=== PATIENT | female | born 1960 ===

== ENCOUNTER 2017-11-26 14:26 | Inpatient (IN) | payer MEDICARE, MEDICAID ==
[~2017-11-26] VITALS: Ht 165.1 cm; Wt 91.6 kg
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
--- NOTE | ~2017-11-26 | PR ---
[place], [place] PROGRESS NOTE [id number] UN[facility] #: [id number] ROOM: 310 DOCTOR: ALEX HYLTON MD BIRTHDATE: [birth year] DOS: 11/28/2017 CHIEF COMPLAINT: "I can't breathe too well." SUMMARY OF THE VISIT: The patient was interviewed as she sat in a Karina chair eating breakfast. She did have O2 on through nasal cannula. She was fixated on not being able to breathe, but seemed to be not in any distress whatsoever. Nurses report that she continues to be very problematic and that she is very delusional and will yell out, disrupting the entire watkins milieu. Her current medication regimen seems ineffective to date. MENTAL STATUS: She is alert and oriented to self, place, but not necessarily time. Mood does seem to be labile. Affect is inappropriate. She is in a mixed state of jolene and there is a gross delusional system present. Short term memory has gaps. PLAN: I will simplify her current regimen. She is on Haldol, Seroquel and Abilify. I will discontinue all three as well as the Benadryl. I will utilize Invega 6 mg in the morning to break the psychosis and increase her Depakote sprinkles to 500 mg twice daily and 1000 mg at bedtime, loading it at bedtime to aid sleep. Her valproic acid level was 28.3, so it is subtherapeutic. For PRNs, instead of the Haldol and Benadryl I will use Geodon 20 mg IM every 4 hours as needed and Ativan 1 mg p.o. every 4 hours as needed. We will engage in individual and watkins milieu activity, returning to the least restrictive environment when psychiatrically stable. ALEX HYLTON MD CM:PNTRANS 6 ALEX HYLTON MD 11/28/1715 interface
--- NOTE | ~2017-11-26 | PR ---
[place], [place] PROGRESS NOTE NAME: [facility]OTELLO [id number] UN[facility] #: [id number] ROOM: 309 DOCTOR: LALI BARCENAS DO BIRTHDATE: [birth year] DOS: 12/06/2017 CHIEF COMPLAINT: "I am feeling down. I want my family." SUMMARY OF VISIT: The patient is a 57-year-old female who [facility], currently on hospital day #10 with improved mood and significantly decreased disruptive behavior and yelling. She was admitted to the [facility] and initially was noted to have constant episodes of yelling and screaming. Per nursing staff, this has significantly reduced today. No notable yelling or disruptive behavior has been noted. She did appear to be somewhat sad this morning. She was interviewed in her room as the patient is currently in contact isolation. When asked if she was okay, she stated that she was sad that she missed her family. We reassured her that we would be discharging her to return to [facility] [place]. She stated she did not want to go there. However, we reassured her that they have been contacted and appeared to enjoy having her there. She did not elaborate as to why she did not want to go there. The patient was not yelling, did not show any signs of combativeness, she was sitting upright in bed. She states she was able to eat. Yesterday due to the patient being in contact isolation, she did participate in an activity that included coloring. She did appear to like that. When asked if she wanted to engage in this activity again, she stated that she would like that very much. The patient did not voice any other concerns at this time. MENTAL STATUS EXAMINATION: The patient is alert and oriented to self. Her affect is slightly depressed, but more appropriate. Her mood is trending towards euthymic. There are no signs of jolene or hypomania. She appears to be less psychotic and more readily engaging in conversation. She is now able to appropriately answer questions during our encounter. No bouts of yelling have been noted from the nursing staff or from the day or operations supervisor 2nd shift nurses today. She is pleasant and cooperative with exam this morning. Short-term memory continues to have gaps. She is less irritable and volatile. PLAN: 1. No changes to be made to her psychotropic regimen as she appears to have significantly improved on current psychotropic regimen. She does not appear to be having any side effects. Sleep and appetite have continued to normalize. 2. The patient likely to return to [facility] either Tuesday12/07/2017 or 12/08/2017. This is the place where the patient was living prior to arriving to the [facility]. 3. The patient is currently in contact isolation; however, she continues to have urinary incontinence. Therefore, she must remain in contact isolation. She is unable to keep her diapers on and we will continue isolation precautions. 4. We will continue to engage the patient in individual and work milieu activity, returning to the least restrictive environment when psychiatrically stable. ADDENDUM BY DR. HYLTON 12/15/17 11:15 AM: Above note reviewed. Agree with observations, recommendations, and overall treatment [place], [place] PROGRESS NOTE NAME: TANNER BOTELLO UNIT #: [id number] ROOM: 309 DOCTOR: LALI BARCENAS DO BIRTHDATE: [birth year] plan. Lali Barcenas DO ALEX HYLTON MD CM:PNTRANS [id number] T: LALI BARCENAS DO 12/15/17 1404 TOM [place].PRINCESS
--- NOTE | ~2017-11-26 | PR ---
[place], [place] PROGRESS NOTE [id number] UNIT #: [id number] ROOM: 309 DOCTOR: LALI BARCENAS DO BIRTHDATE: [birth year] DOS: 12/05/2017 CHIEF COMPLAINT: "I want to go home." SUMMARY OF VISIT: The patient is a 57-year-old female who was admitted to the [facility], currently on hospital day #9 with improved mood and decreased disruptive behavior. [facility] due to persistent flight of ideas and erratic behavior while being a resident at home. Since then, the patient has had decrease in yelling out as intensely. She is more cooperative towards nursing staff. She does continue to have episodes of yelling; however, she is able to engage in conversation more readily. This morning, she was interviewed in her room. She reported better sleep. There were no signs of agitation or aggression during my interview. The patient appeared more well rested, patient appears to be improving overall in terms of somnolence. No side effects from medication were noted. MENTAL STATUS EXAMINATION: The patient is alert and oriented to self. There continued to be episodes of yelling; however, her mood is trending towards more euthymic. Her affect is more appropriate. There are no signs of jolene or hypomania. She is still grossly psychotic; however, it may be possible that the patient is yelling as she is currently in contact isolation and trying to obtain attention from people passing by her room; however, when someone enters the room, she readily engages in conversation and is pleasant. PLAN: 1. No changes to psychotropic regimen as the patient appears to be tolerating this regimen well. No side effects have been noted. Sleep and appetite have continued to normalize. 2. We will continue to engage in individual and watkins milieu activity, returning to the least restrictive environment when psychiatrically stable. 3. The patient likely to be discharged sometime later this week back to [facility] and at [place] which is where the patient was living prior to [facility]. ADDENDUM BY DR. HYLTON 12/15/17 11:15 AM: Above note reviewed. Agree with observations, recommendations, and overall treatment plan. Lali Barcenas DO [place], [place] PROGRESS NOTE NAME: ROSMERYTANNER M UNIT #: [id number] ROOM: 309 DOCTOR: LALI BARCENAS DO BIRTHDATE: [birth year] ALEX HYLTON MD CM:NISHI 1002 T: LALI BARCENAS DO 12/15/17 1404 TOM [place].R
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
--- NOTE | ~2017-11-26 | WRIGHTHP ---
[place], [place] PATIENT HISTORY AND PHYSICAL EXAM NAME[id number] UNIT #: [id number] ROOM: 310 DOCTOR: SUZETTE CARRILLO MD BIRTHDATE: [birth year] DOS: 11/27/2017 PSYCHIATRIC HISTORY AND PHYSICAL REASON FOR HOSPITALIZATION: Increased psychotic and delusional behavior. HISTORY OF PRESENT ILLNESS: The patient seen and chart reviewed. A 57-year-old white female with history of schizophrenia, who lives in a halfway, brought into the ER for increased delusions and agitated behavior. The patient got cleared medically into the ER and then sent to the psychiatric unit for further care and stabilization. It should be noted that the patient got admitted recently to [facility] for cardiac tamponade and after medical stabilization, she was sent back to the halfway. Reportedly, she was not taking her medication at the halfway. The patient was in a Karina chair. She was in the day area. She was somewhat disorganized. She said that she is doing well and she does not know why she was sent to this hospital. She told me that before she came to this hospital, she had been living with her mom and dad. She also talked about people trying to hurt her. When I asked who may hurt her, she talked about Bin Laden who is trying to kidnap her and take her away. She does not seem to be internally stimulated, but definitely she was delusional and paranoid. She denied being depressed, sad, hopeless or helpless. She said that she usually does not take her medication, but she will be taking her medication now. She was not in any distress. PAST MEDICAL HISTORY: Significant for atrial fibrillation, cardiac tamponade, diabetes mellitus, dysphagia, hypertension, hyperlipidemia, hypothyroidism, iron deficiency anemia and seizure disorder. PAST PSYCHIATRIC HISTORY: The patient denied any prior psychiatric hospitalization, denied any prior suicide attempt, but she mentioned that people are trying to hurt her. SUBSTANCE ABUSE HISTORY: The patient denied any drugs or alcohol. SOCIAL HISTORY: The patient is a poor historian. She was living in a halfway before coming to the hospital, but she claims that [place] with [place]. She also said that she was living with her parents, mom and dad. MENTAL STATUS EXAMINATION: The patient was irritable and angry, pretty labile. She was alert, not oriented to day, date, month or year. She described her mood as "okay." Affect was broad range, labile. Thought process disorganized. She denied any auditory or visual hallucination. She is delusional and paranoid. She denied suicidal ideation, intent or plan. She also denied homicidal ideation, intent or plan. Insight and judgment impaired. ASSESSMENT: 1. Schizophrenia, chronic paranoid type. 2. Rule out schizoaffective disorder. [place], [place] PATIENT HISTORY AND PHYSICAL EXAM NAME: [facility] BOTELLO [id number] UNIT #: [id number] ROOM: 310 DOCTOR: SUZETTE CARRILLO MD BIRTHDATE: [birth year] PLAN: 1. I will continue the Depakote 500 mg t.i.d. 2. Continue Seroquel 100 mg b.i.d. and 200 mg at night. 3. I will add Abilify 10 mg at night with a plan to give her long acting Aristada due to her now noncompliance with her medication. 4. Continue redirection and supportive care. 5. Encourage activity in groups. SUZETTE CARRILLO MD CM:HISPHYS:PATIENT HISTORY AND PHYSICAL EXAMINATION [id number] SUZETTE CARRILLO MD 11/27/17 1429 interface
--- NOTE | ~2017-11-26 | PR ---
[place], [place] PROGRESS NOTE NAME: [facility]OTELLO [id number] UNIT #: [id number] ROOM: 309 DOCTOR: LALI BARCENAS DO BIRTHDATE: [birth year] DOS: 11/30/2017 CHIEF COMPLAINT: "When am I going home." SUMMARY OF VISIT: The patient is a 57-year-old female who is admitted to the [facility], currently on hospital day #4 with persistent flight of ideas and volatile mood. Patient was brought to the U due to increased delusions and agitated behavior at retirement. SUBJECTIVE: Today, the patient was interviewed in her room. At that time, patient was not fully clothed. We had to address the patient after we had assistance for her to put her hospital gown back on. Patient was noted to be yelling at that time. Of note, yesterday, patient was unable to take Invega as she spit out the medication. This was discontinued as it could not be crushed and placed in pudding or applesauce. Risperdal M-Tab 3 mg q.a.m. was started. Overnight, patient was noted to have visual hallucinations, delusional thoughts, flight of ideas. Patient was also noted to be having conversation with people in the room who were not present. Per nursing staff, patient appeared to be having multiple tones in her conversation, one appeared to be childlike in behavior asking for mommy and daddy, another which appeared to have flight of ideas and a third tone which expressed sexual topics that were disturbing in nature. Patient slept 3 hours per nursing staff. Patient is currently receiving fosfomycin for a UTI; this is being managed by the internal medicine hospitalist team. This morning, patient was interviewed in her room. We were able to explain to the patient the need for continuation of therapy. Patient was asking when she can go home; at that time, we explained we would continue medication and she verbalized agreement with plan. Per nursing staff, patient has been continually yelling throughout the night, which has been disturbing the residents in the watkins as well. MENTAL STATUS EXAMINATION: The patient is alert and oriented to self only. Mood appears to be volatile. Affect is inappropriate. She continues to have flight of ideas and appears to be exposing her genitals to nursing staff and other patients on the watkins. Short term memory continues to be problematic and is very poor. Patient continues to have difficulty sleeping at night. Patient continues to be yelling throughout the interview. PLAN: 1. We will start patient on Invega Sustenna 234 mg IM today. 2. Patient is currently on fosfomycin for UTI; this is being managed by the hospitalist internal medicine team. 3. Invega was discontinued yesterday as patient was spitting out medication and this medication cannot be crushed and put in tube feeding. 4. Disposition: Patient to be discharged next week pending on medical and psychiatric status. We will continue to engage the patient in individual and watkins milieu activity, returning to the least restrictive environment when psychiatrically stable. ADDENDUM BY DR. HYLTON 12/15/17 11:15 AM: [place], [place] PROGRESS NOTE NAME: TANNER BOTELLO UNIT #: [id number] ROOM: 309 DOCTOR: LALI BARCENAS DO BIRTHDATE: [birth year] Above note reviewed. Agree with observations, recommendations, and overall treatment plan. Lali Barcenas DO ALEX HYLTON MD CM:NISHI 1129 T: LALI BARCENAS DO 12/15/17 1403 TOM [place].MICR
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
[2017-11-26] MEDS ORDERED: CARDIZEM LA240 MG PO (15:06)
[2017-11-26] MEDS ORDERED: IRON325 M1 PO (15:08)
[2017-11-26] MEDS ORDERED: LASIX20 MG PO (15:09)
[2017-11-26] MEDS ORDERED: LEVOTHYROXINE100 MC1 PO (15:10)
[2017-11-26] MEDS ORDERED: GLUCOPHAGE500 M1 PO (15:11)
[2017-11-26] MEDS ORDERED: POTASSIUM CHLO10 ME4 PO (15:13)
[2017-11-26] MEDS ORDERED: QUETIAPINE FUM200 M2 PO (15:16)
[2017-11-26] MEDS ORDERED: STRESS B WITH1 EACH PO (15:17)
[2017-11-26] MEDS ORDERED: SENOKOT8.6 MG PO (15:17)
[2017-11-26] MEDS ORDERED: THERAGRAN-M PR1 EACH PO (15:19)
[2017-11-26] MEDS ORDERED: XARELTO15 M1 PO (15:21)
[2017-11-26] MEDS ORDERED: AMIODARONE HYD200 MG PO (15:22)
[2017-11-26] MEDS ORDERED: LACTULOSE10 GM/151 PO (15:32)
[2017-11-26] MEDS ORDERED: LOPID600 M1 PO (15:34)
[2017-11-26] MEDS ORDERED: QUETIAPINE FUM100 M1 PO (15:36)
[2017-11-26] MEDS ORDERED: Depakote Sprin125 MG PO (15:39)
[2017-11-26] MEDS ORDERED: MIDODRINE HCL5 M1 PO (15:41)
[2017-11-26] MEDS ORDERED: Accuneb 0.1.25 MG/3 INH (15:42)
[2017-11-26] MEDS ORDERED: HUMALOG100 UNIT/2 SQ (15:46)
[2017-11-26] MEDS ORDERED: HALDOL5 MG/1 ML IM (15:48)
[2017-11-26] MEDS ORDERED: Ipratropium Brom3 ML INH (15:49)
[2017-11-26] MEDS ORDERED: Zofran4 MG SL (15:52)
[2017-11-26] MEDS ORDERED: AMINOPHYLLIN200 MG PO (22:27)
[2017-11-26 22:36] VITALS: BP 86/44
[2017-11-27 00:02] VITALS: BP 97/51
[2017-11-27 01:12] VITALS: BP 99/56
[2017-11-27 07:03] LABS: BASO % 0.1 % (0.0-1.0); EOS % 0.3 % (1.0-4.0); HEMATOCRIT 31.8 % (37.0-47.0); HEMOGLOBIN 9.5 g/dl (12.0-16.0); LYMPH # 1.1 10*3/uL (1.3-4.4); LYMPH % 15.9 % (27.0-41.0); MEAN CORPUSCULAR HGB 29.9 pg (27.0-31.0); MEAN CORPUSCULAR HGB CONC 29.9 g/dl (33.0-37.0); MEAN PLATELET VOLUME 9.2 fl (9.6-12.3); MONO # 1.3 10*3/uL (0.1-1.0); MONO % 19.8 % (3.0-9.0); NEUT # 4.2 10*3/uL (2.3-7.9); NEUT % 62.9 % (47.0-73.0); PLATELET COUNT AUTOMATED 140 10*3/uL (130-400); RED BLOOD COUNT 3.18 10*6/uL (4.10-5.10); RED CELL DISTRI WIDTH 18.2 % (0-14.5); WHITE BLOOD COUNT 6.7 10*3/uL (4.8-10.8)
[2017-11-27 07:15] LABS: ALBUMIN 1.8 gm/dl (3.1-4.5); ALKALINE PHOSPHATASE 131 U/L (45-117); BUN 12 mg/dl (7-24); CHLORIDE 95 mmol/L (98-107); CHOLESTEROL 142 mg/dL (<200); CREATININE 0.66 mg/dL (0.55-1.02); HDL CHOLESTEROL 19 mg/dl (40-60); LDL CHOLESTEROL 82 mg/dL (9-159); POTASSIUM 3.8 mmol/L (3.5-5.1); SGOT/AST 20 IU/L (3-35); SGPT/ALT 6 U/L (12-78); SODIUM 139 mmol/L (136-145); TRIGLYCERIDES 203 mg/dl (<150); VLDL CHOLESTEROL 41 mg/dL (6-40)
[2017-11-27 07:24] LABS: VALPROIC ACID (DEPAKENE) 28.3 ug/ml (50-100)
[2017-11-27 08:06] VITALS: BP 100/58
[2017-11-27 08:12] LABS: VITAMIN D, 25-HYDROXY 14.5 ng/mL (30-100)
[2017-11-27 12:24] VITALS: BP 98/64
[2017-11-27 20:00] VITALS: BP 101/69
[2017-11-28 07:42] VITALS: BP 110/62
[2017-11-28 20:00] VITALS: BP 105/65
[2017-11-29 07:43] VITALS: BP 109/65
[2017-11-29 09:14] LABS: BASO % 0.3 % (0.0-1.0); EOS # 0.1 10*3/uL (0.0-0.4); EOS % 0.9 % (1.0-4.0); HEMATOCRIT 30.9 % (37.0-47.0); HEMOGLOBIN 9.4 g/dl (12.0-16.0); LYMPH # 1.7 10*3/uL (1.3-4.4); LYMPH % 21.7 % (27.0-41.0); MEAN CELL VOLUME 97.2 fl (81.0-99.0); MEAN CORPUSCULAR HGB 29.6 pg (27.0-31.0); MEAN CORPUSCULAR HGB CONC 30.4 g/dl (33.0-37.0); MEAN PLATELET VOLUME 9.3 fl (9.6-12.3); MONO # 1.3 10*3/uL (0.1-1.0); MONO % 16.5 % (3.0-9.0); NEUT # 4.7 10*3/uL (2.3-7.9); NEUT % 59.3 % (47.0-73.0); PLATELET COUNT AUTOMATED 116 10*3/uL (130-400); RED BLOOD COUNT 3.18 10*6/uL (4.10-5.10); RED CELL DISTRI WIDTH 17.3 % (0-14.5); WHITE BLOOD COUNT 7.9 10*3/uL (4.8-10.8)
[2017-11-29 19:54] VITALS: BP 108/60
[2017-11-30 07:46] VITALS: BP 121/67
[2017-11-30 20:00] VITALS: BP 110/59
[2017-12-01 07:32] VITALS: BP 132/67
[2017-12-01 08:18] LABS: BUN 6 mg/dl (7-24); CHLORIDE 91 mmol/L (98-107); CREATININE 0.43 mg/dL (0.55-1.02); POTASSIUM 2.9 mmol/L (3.5-5.1); SODIUM 138 mmol/L (136-145)
[2017-12-01 20:14] VITALS: BP 138/70
[2017-12-02 07:24] LABS: BUN 7 mg/dl (7-24); CHLORIDE 95 mmol/L (98-107); CREATININE 0.48 mg/dL (0.55-1.02); POTASSIUM 3.7 mmol/L (3.5-5.1); SODIUM 140 mmol/L (136-145)
[2017-12-02 07:48] VITALS: BP 129/69
[2017-12-02 20:18] VITALS: BP 122/72
[2017-12-03 08:02] VITALS: BP 123/69
[2017-12-03 20:00] VITALS: BP 128/60
[2017-12-04 07:51] VITALS: BP 121/69
[2017-12-04 20:08] VITALS: BP 129/76
[2017-12-05 07:32] VITALS: BP 126/67
[2017-12-05 20:02] VITALS: BP 130/70
[2017-12-06 06:52] LABS: BASO % 0.1 % (0.0-1.0); EOS # 0.2 10*3/uL (0.0-0.4); EOS % 1.9 % (1.0-4.0); LYMPH # 2.5 10*3/uL (1.3-4.4); LYMPH % 29.5 % (27.0-41.0); MONO # 1.3 10*3/uL (0.1-1.0); MONO % 15.2 % (3.0-9.0); NEUT # 4.5 10*3/uL (2.3-7.9); NEUT % 52.3 % (47.0-73.0); WHITE BLOOD COUNT 8.6 10*3/uL (4.8-10.8)
[2017-12-06 07:38] VITALS: BP 128/66
[2017-12-06 17:58] LABS: BILIRUBIN NEGATIVE (NEGATIVE); BLOOD 2+ (NEGATIVE); CLARITY SL CLOUDY (CLEAR); COLOR YELLOW (YELLOW); GLUCOSE NEGATIVE (NEGATIVE); KETONE NEGATIVE (NEGATIVE); LEUKO ESTERASE 3+ (NEGATIVE); NITRITE POSITIVE (NEGATIVE); PH 6.5 (5.0-9.0)
[2017-12-06 18:07] LABS: BACTERIA 4+
[2017-12-06 18:08] LABS: RBC 16-20 rbc/hpf (0-2); WBC 51-100 wbc/hpf (0-5)
[2017-12-06 20:00] VITALS: BP 126/68
[2017-12-07 06:37] LABS: BASO % 0.4 % (0.0-1.0); EOS # 0.2 10*3/uL (0.0-0.4); EOS % 2.2 % (1.0-4.0); HEMATOCRIT 28.3 % (37.0-47.0); HEMOGLOBIN 8.3 g/dl (12.0-16.0); LYMPH # 2.5 10*3/uL (1.3-4.4); LYMPH % 33.2 % (27.0-41.0); MEAN CORPUSCULAR HGB 29.3 pg (27.0-31.0); MEAN CORPUSCULAR HGB CONC 29.3 g/dl (33.0-37.0); MEAN PLATELET VOLUME 8.9 fl (9.6-12.3); MONO # 1.1 10*3/uL (0.1-1.0); MONO % 14.3 % (3.0-9.0); NEUT # 3.6 10*3/uL (2.3-7.9); PLATELET COUNT AUTOMATED 210 10*3/uL (130-400); RED BLOOD COUNT 2.83 10*6/uL (4.10-5.10); RED CELL DISTRI WIDTH 17.3 % (0-14.5); WHITE BLOOD COUNT 7.4 10*3/uL (4.8-10.8)
[2017-12-07 06:38] LABS: ALBUMIN 1.5 gm/dl (3.1-4.5); ALKALINE PHOSPHATASE 119 U/L (45-117); BUN 12 mg/dl (7-24); CHLORIDE 100 mmol/L (98-107); CREATININE 0.46 mg/dL (0.55-1.02); POTASSIUM 3.9 mmol/L (3.5-5.1); SGOT/AST 17 IU/L (3-35); SGPT/ALT 9 U/L (12-78); SODIUM 142 mmol/L (136-145); TOTAL PROTEIN 6.8 gm/dL (6.4-8.2)
[2017-12-07 08:01] VITALS: BP 130/69
[2017-12-07 20:00] VITALS: BP 125/69
[2017-12-08 06:40] LABS: BASO % 0.6 % (0.0-1.0); EOS # 0.2 10*3/uL (0.0-0.4); EOS % 2.4 % (1.0-4.0); HEMATOCRIT 27.5 % (37.0-47.0); HEMOGLOBIN 8.3 g/dl (12.0-16.0); LYMPH # 2.2 10*3/uL (1.3-4.4); LYMPH % 33.9 % (27.0-41.0); MEAN CELL VOLUME 99.3 fl (81.0-99.0); MEAN CORPUSCULAR HGB CONC 30.2 g/dl (33.0-37.0); MEAN PLATELET VOLUME 9.4 fl (9.6-12.3); MONO % 15.3 % (3.0-9.0); NEUT # 3.1 10*3/uL (2.3-7.9); NUCLEATED RED BLOOD CELL 0.3 % (0.0-0.0); PLATELET COUNT AUTOMATED 242 10*3/uL (130-400); RED BLOOD COUNT 2.77 10*6/uL (4.10-5.10); RED CELL DISTRI WIDTH 17.3 % (0-14.5); WHITE BLOOD COUNT 6.6 10*3/uL (4.8-10.8)
[2017-12-08 07:54] VITALS: BP 134/69
[2017-12-08] MEDS ORDERED: TRAZADONE HYDR100 MG PO (09:10)
[2017-12-08] MEDS ORDERED: CLOZAPINE100 MG PO (09:10)
[2017-12-08] MEDS ORDERED: NITROFURANTOIN100 M9 PO (12:24)
== END 2017-12-08 16:40 | disposition other institution (70) | DRG 885 ==
LOC: 3N 14:26
PROVIDERS: Internal Medicine; Psychiatry & Neurology Psychiatry; Registered Nurse; Student in an Organized Health Care Education/Training Program
DX: F25.9 Schizoaffective disorder, unspecified (principal); E43 Unspecified severe protein-calorie malnutrition; L89.152 Pressure ulcer of sacral region, stage 2; E87.3 Alkalosis; I95.9 Hypotension, unspecified; E87.8 Other disorders of electrolyte and fluid balance, not elsewhere classified; E83.41 Hypermagnesemia; E11.65 Type 2 diabetes mellitus with hyperglycemia; I48.0 Paroxysmal atrial fibrillation; F23 Brief psychotic disorder; N39.0 Urinary tract infection, site not specified; Z79.899 Other long term (current) drug therapy; D64.9 Anemia, unspecified; D72.810 Lymphocytopenia; R31.21 Asymptomatic microscopic hematuria; D50.9 Iron deficiency anemia, unspecified; A49.8 Other bacterial infections of unspecified site; Z16.12 Extended spectrum beta lactamase (ESBL) resistance; E87.6 Hypokalemia; I48.91 Unspecified atrial fibrillation; R13.11 Dysphagia, oral phase; I10 Essential (primary) hypertension; E78.5 Hyperlipidemia, unspecified; E03.9 Hypothyroidism, unspecified; G40.909 Epilepsy, unspecified, not intractable, without status epilepticus; Z88.8 Allergy status to other drugs, medicaments and biological substances; Z79.01 Long term (current) use of anticoagulants; Z79.84 Long term (current) use of oral hypoglycemic drugs; Z79.4 Long term (current) use of insulin

== ENCOUNTER 2017-11-26 16:14 | Emergency (ER) | payer MEDICARE, MEDICAID ==
[~2017-11-26] VITALS: Ht 165.1 cm; Wt 95.3 kg
[~2017-11-26 16:14] MED LIST: AMIODARONE HYD200 MG PO; Accuneb 0.1.25 MG/3 INH; CARDIZEM LA240 MG PO; Depakote Sprin125 MG PO; GLUCOPHAGE500 M1 PO; HALDOL5 MG/1 ML IM; HUMALOG100 UNIT/2 SQ; IRON325 M1 PO; Ipratropium Brom3 ML INH; LACTULOSE10 GM/151 PO; LASIX20 MG PO; LEVOTHYROXINE100 MC1 PO; LOPID600 M1 PO; MIDODRINE HCL5 M1 PO; POTASSIUM CHLO10 ME4 PO; QUETIAPINE FUM100 M1 PO; QUETIAPINE FUM200 M2 PO; SENOKOT8.6 MG PO; STRESS B WITH1 EACH PO; THERAGRAN-M PR1 EACH PO; XARELTO15 M1 PO; Zofran4 MG SL
[2017-11-26 17:07] LABS: BASO % 0.2 % (0.0-1.0); EOS % 0.2 % (1.0-4.0); HEMATOCRIT 30.5 % (37.0-47.0); HEMOGLOBIN 9.2 g/dl (12.0-16.0); LYMPH # 1.4 10*3/uL (1.3-4.4); LYMPH % 23.5 % (27.0-41.0); MEAN CELL VOLUME 98.7 fl (81.0-99.0); MEAN CORPUSCULAR HGB 29.8 pg (27.0-31.0); MEAN CORPUSCULAR HGB CONC 30.2 g/dl (33.0-37.0); MEAN PLATELET VOLUME 9.4 fl (9.6-12.3); MONO # 1.1 10*3/uL (0.1-1.0); MONO % 18.5 % (3.0-9.0); NEUT # 3.4 10*3/uL (2.3-7.9); NEUT % 56.4 % (47.0-73.0); PLATELET COUNT AUTOMATED 132 10*3/uL (130-400); RED BLOOD COUNT 3.09 10*6/uL (4.10-5.10); RED CELL DISTRI WIDTH 18.6 % (0-14.5)
[2017-11-26 17:25] LABS: ALBUMIN 1.8 gm/dl (3.1-4.5); ALKALINE PHOSPHATASE 119 U/L (45-117); BUN 14 mg/dl (7-24); CHLORIDE 93 mmol/L (98-107); CREATININE 0.73 mg/dL (0.55-1.02); POTASSIUM 3.8 mmol/L (3.5-5.1); SGOT/AST 12 IU/L (3-35); SGPT/ALT < 6 U/L (12-78); SODIUM 139 mmol/L (136-145); TOTAL PROTEIN 7.7 gm/dL (6.4-8.2)
[2017-11-26 20:40] LABS: BILIRUBIN NEGATIVE (NEGATIVE); BLOOD 3+ (NEGATIVE); CLARITY CLOUDY (CLEAR); COLOR YELLOW (YELLOW); GLUCOSE NEGATIVE (NEGATIVE); KETONE NEGATIVE (NEGATIVE); SPECIFIC GRAVITY 1.015 (1.005-1.030)
[2017-11-26 20:41] LABS: LEUKO ESTERASE 3+ (NEGATIVE); NITRITE POSITIVE (NEGATIVE); WBC TNTC wbc/hpf (0-5)
[2017-11-26 20:46] LABS: URINE AMPHETAMINES < 1000 (1000ng/ml); URINE BARBITURATES < 200 (200ng/ml); URINE BENZODIAZEPINES < 200 (200ng/ml); URINE CANNABINOIDS (THC) < 50 (50ng/ml); URINE COCAINE < 300 (300ng/ml); URINE METHADONE < 300 (300ng/ml); URINE OPIATES < 300 (300ng/ml)
[2017-11-26 20:47] LABS: URINE PHENCYCLIDINE < 25 (25ng/ml)
[2017-11-26] MEDS ORDERED: AMINOPHYLLIN200 MG PO (22:27)
== END 2017-11-26 21:52 | disposition admitted as inpatient to this hospital (09) ==
LOC: ED
PROVIDERS: Emergency Medicine
DX: F23 Brief psychotic disorder (principal); N39.0 Urinary tract infection, site not specified; R31.9 Hematuria, unspecified; L89.152 Pressure ulcer of sacral region, stage 2; Z79.899 Other long term (current) drug therapy